=== PATIENT | female | born 1990 | race African-American/Black ===

== ENCOUNTER 2018-08-21 16:20 | Inpatient (IN) | payer MEDICAID, SELFPAY ==
[~2018-08-21 16:20] MED LIST: Ketorolac Tromethamine 30 MG/ML VIAL ONE; Ondansetron HCl/PF 4 MG/2 ML Vial ONE; PHENYLEPHRINE-NS 100 MCG/ML 10 ML SYRINGE ONE
[2018-08-21 17:01] VITALS: BMI 37.8
--- NOTE | 2018-08-21 18:12 | PDOC.FPROB ---
FMR OB H&P: HPI - History of Present Illness Chief Complaint: vaginal bleeding History of Present Illness: 28 yo at 39.6 wks by LMP c/w 21wk US. She was in normal state of health today when she began having vaginal bleeding when wiping after bathroom. Blood was dark and mucousy. Also had some dull pain in pubic and back that came-and- went, maybe every 10 minutes. Denies [place], scotoma, RUQ pain, abd pain, LOF, n/v, decreased movement. Primary Care Physician: Amy FMR OB H&P: Current - OB Labs Blood type: A RH: positive Antibody Screen: negative HIV: negative RPR: negative HepBsAg: negative Rubella: immune Urine drug screen: negative Gonorrhea: negative Chlamydia: negative 1 hour gtt: negative FMR OB H&P: History - Past Medical History PMH: mild anemia in blighted ovum in previous - OB History OB History: previous : blighted ovum FMR OB H&P: Medications - Current Home Medications: Medication Instructions Recorded Confirmed Type No Known 08/21/18 08/21/18 History Allergies/Adverse Reactions: Allergies Allergy/AdvReac Type Severity Reaction Status Date / Time No Known Allergies Allergy Verified 08/21/18 16:49 FMR OB H&P: ROS - Review of Systems General: denies: fever/chills, recent trauma Eyes: denies: vision changes, scotomas Cardiovascular: denies: chest pain Respiratory: denies: cough, shortness of breath Gastrointestinal: denies: abdominal pain, nausea, vomiting Genitourinary (Female): denies: incontinence, dysuria Musculoskeletal: denies: decrease range of motion Neurologic: denies: seizures, headache FMR OB H&P: Vital Signs - Maternal Vital signs: Vital Signs - First Documented Temp Pulse Resp BP 99.1 F 73 17 141/88 H 08/21/18 16:41 08/21/18 16:41 08/21/18 16:41 08/21/18 16:41 - Heart Tones Baseline: 150 Variability: moderate Deceleration: absent Category: category 1 [place] contractions every: 10 minutes FMR OB H&P: Physical Exam - Physical Exam General: NAD HEENT: MMM Neck: supple Heart: RRR, normal S1/S2 General: CTAB, no respiratory distress Abdomen: soft, non-tender, bowel sound present Musculoskeletal: pulses present Neurological: DTR +2 Deviation from normal: 1+ pitting edema to knees in both legs - Pelvic Exam Vulva: normal hair distribution SVE: FT/thick/-3 FMR OB H&P: A/P - Problem List (1) IUP (intrauterine ), incidental Current Visit: Yes Status: Acute Code(s): Z34.90 - ENCNTR FOR SUPRVSN OF NORMAL , UNSP, UNSP TRIMESTER (2) Elevated BP without diagnosis of hypertension Current Visit: Yes Status: Acute Code(s): R03.0 - ELEVATED BLOOD-PRESSURE READING, W/O DIAGNOSIS OF HTN (3) Vaginal bleeding during Current Visit: Yes Status: Resolved Code(s): O46.90 - ANTEPARTUM HEMORRHAGE , UNSPECIFIED, UNSPECIFIED TRIMESTER Discussion: Date/Time: 08/21/18 1806 28yo at 39.6wks by LMP/2nd trimester US here for bleeding. 1. SIUP with vaginal bleeding -During the course of evaluation of patient, baby's HR began having late decelerations which responded to intervention of fluid bolus and positioning on left side. Discussion with patient and family, the decision was made to perform c/section. 2. Elevated BP without a diagnosis of HTN -she did have another elevated value here in the 160s during evaluation, but normalized out. Will continue to monitor peripartum and . This H&P was discussed with Dr. Cage who agrees with the above documentation and plan. Attending Addendum - Attending Addendum Date/Time: 08/22/18 8896 I personally evaluated the patient and discussed the management with Dr. Blank I agree with the History, Examination, Assessment and Plan documented above with any addition or exceptions noted below. VB more than expected for bloody show. Patient had prolonged late decel during my exam. Her cervix is high thick and closed. Watch closely if recurs ---> deliver operatively.
[2018-08-21] MEDS ORDERED: Lactated Ringer's 1,000 ML IV SCH (18:30)
[2018-08-21] MEDS ORDERED: Promethazine HCl 25 MG/ML VIAL IM PRN ×2 (18:54→21:15)
[2018-08-21] MEDS ORDERED: Ondansetron HCl/PF 4 MG/2 ML Vial IVP PRN ×4 (18:54→21:15)
[2018-08-21] MEDS ORDERED: CEFAZOLIN/Water 2 GM/20 ML SYRINGE SLOW IVP SCH (19:00)
[2018-08-21] MEDS ORDERED: Bicitra 30 ML UDCUP PO SCH (19:00)
[2018-08-21 19:22] LABS: Hemoglobin 11.3 g/dL (12.0-16.0); Mean Corpuscular HGB CONC 32.4 g/dL (32.0-36.0); Mean Corpuscular Hemoglobin 27.8 pg (27.0-31.0); Mean Corpuscular Volume 85.8 fL (78.0-98.0); Mean Platelet Volume 9.7 fL (7.4-10.4); Platelet Count 190 thou/uL (130-400); Red Blood Cell (RBC) Count 4.05 mill/uL (4.20-5.40); White Blood Cell (WBC) Count 6.5 thou/uL (4.8-10.8)
[2018-08-21] MEDS ORDERED: Labetalol HCl 100 MG/20 ML VIAL SLOW IVP PRN (19:26)
[2018-08-21] MEDS ORDERED: Morphine PF 1 MG/ML SYR ONE (19:37)
[2018-08-21] MEDS ORDERED: ePHEDrine/0.9% NaCl/PF SYRINGE 50 mg/10 ml ONE (19:38)
[2018-08-21] MEDS ORDERED: Lidocaine 2% 10 ML INJ ONE (19:38)
[2018-08-21] MEDS ORDERED: PHENYLEPHRINE-NS 100 MCG/ML 10 ML SYRINGE ONE (19:38)
[2018-08-21] MEDS ORDERED: Ondansetron HCl/PF 4 MG/2 ML Vial ONE (19:38)
[2018-08-21] MEDS ORDERED: Bupivacaine 0.75% W/DEXTROSE 8.25% 2 ML AMP ONE (19:38)
[2018-08-21 19:53] LABS: Syphilis Antibody Nonreactive (Nonreactive); Syphilis Antibody Index 0.06 S/CO (<1.00 Non-Reactive)
[2018-08-21 19:54] LABS: HBSAg Index 0.23 S/CO (0-0.99); Hep B Surf Ag Non-Reactive S/CO (NonReactive)
[2018-08-21] MEDS ORDERED: Oxytocin 10 UNITS/ML VIAL ONE ×3 (20:13→20:53)
[2018-08-21] MEDS ORDERED: Ketorolac Tromethamine 30 MG/ML VIAL ONE (20:23)
[2018-08-21] MEDS ORDERED: HYDROmorphone 2 MG/ML VIAL SLOW IVP PRN (21:15)
[2018-08-21] MEDS ORDERED: L&D-Morphine 4 MG/ML VIAL SLOW IVP PRN (21:15)
[2018-08-21] MEDS ORDERED: Naloxone HCl 0.4 mg/ml Vial IV PRN (21:15)
[2018-08-21] MEDS ORDERED: Communication Order-Pharmacy FS SCH (21:15)
[2018-08-21] MEDS ORDERED: NS / Oxytocin 40 units/1000ml 1,000 ML IV SCH (21:15)
[2018-08-21] MEDS ORDERED: Acetaminophen/Codeine 30-300mg Tablet PO PRN (21:15)
[2018-08-21] MEDS ORDERED: Lanolin Ointment 7 GM TUBE TOP PRN (21:15)
[2018-08-21] MEDS ORDERED: Acetaminophen 325 MG TAB PO PRN (21:15)
[2018-08-21] MEDS ORDERED: Ketorolac Tromethamine 30 MG/ML VIAL IVP SCH (21:15)
[2018-08-21] MEDS ORDERED: Meperidine HCl/PF 25 MG/ML VIAL SLOW IVP PRN (21:15)
[2018-08-21] MEDS ORDERED: diphenhydrAMINE 50 MG/ML VIAL IVP PRN (21:15)
[2018-08-21] MEDS ORDERED: Eucerin (Mineral Oil/Petrolatum,White) 30 gm Jar TOP PRN (21:15)
[2018-08-21] MEDS ORDERED: Promethazine HCl 25 MG SUPP PR PRN (21:15)
[2018-08-21] MEDS ORDERED: Naloxone HCl 0.4 mg/ml Vial IVP PRN ×2 (21:15)
--- NOTE | 2018-08-21 21:44 | PDOC.LDPN ---
Labor & Delivery Progress Note - Subjective Subjective: comfortable - Objective Vital signs reviewed and normal: yes General: NAD, resting Uterine fundus: non tender Dilation: 5 Effacement: 75% Station: -2 FHT: category 2 (120/poor variability/+ accels/no decels) [place] contractions every: 2-3min AROM: clear fluid IUPC placed: yes - Assessment (1) Elevated BP without diagnosis of hypertension Code(s): R03.0 - ELEVATED BLOOD-PRESSURE READING, W/O DIAGNOSIS OF HTN Current Visit: Yes Status: Acute (2) IUP (intrauterine ), incidental Code(s): Z34.90 - ENCNTR FOR SUPRVSN OF NORMAL , UNSP, UNSP TRIMESTER Current Visit: Yes Status: Acute (3) Vaginal bleeding during Code(s): O46.90 - ANTEPARTUM HEMORRHAGE, UNSPECIFIED, UNSPECIFIED TRIMESTER Current Visit: Yes Status: Acute Plan: pitocin for augmentation
[2018-08-21] MEDS ORDERED: CEFAZOLIN 2 GM in Sodium Chloride 0.9% 100 ML IVPB SCH (22:00)
[2018-08-21] MEDS ORDERED: HYDROcodone/Acetaminophen 5/325 mg Tablet PO PRN (23:58)
[2018-08-22] MEDS: Ketorolac Tromethamine 30 MG/ML VIAL IVP PRN ×2 (02:19→08:55)
--- NOTE | 2018-08-22 05:13 | OP-2 ---
PROCEDURE PERFORMED: Primary low transverse section. Primary Surgeons: Robin Burnett Attending Surgeon: Dr. Yoav Cage, present for entirety of procedure PREOPERATIVE DIAGNOSES: 1. Term intrauterine . 2. Vaginal bleeding. 3. Nonreassuring heart tones with minimal variability. 4. Elevated blood pressures. POSTOPERATIVE DIAGNOSES: 1. Term intrauterine . 2. Vaginal bleeding. 3. Nonreassuring heart tones with minimal variability. 4. Elevated blood pressures. ANESTHESIA: Spinal. INDICATIONS: This is a 28-year-old, G2, P0-0-1-1 female at 39 and 6, who presented to the hospital with vaginal bleeding. heart tones were nonreassuring with frequent decelerations and minimal variability and so decision was made to go for section. Additionally, the patient was found to have elevated blood pressures in the 180s and 190s systolic. Risks and benefits of section were discussed with patient and she agreed for section. PROCEDURE IN DETAIL: The patient gave informed consent. Preoperative antibiotics included 2 grams cefazolin IV. The patient was taken to the operating room and spinal anesthesia was initiated. She was placed in supine position with a left tilt and prepped and draped in the usual sterile fashion. Pfannenstiel incision was made with a scalpel and carried down to the level of the fascia which was sharply nicked. The fascial cut was elevated with Lino clamps and underlying rectus muscles were bluntly dissected free. The fascia was from the recti using Taylor scissors in the midline. The recti were divided digitally. Peritoneum was entered using Taylor scissors with hemostats for retraction. Incision was extended bluntly. Recti were retracted manually. Bladder blade was placed. Bladder flap was created with Metzenbaum scissors. Bladder blade was replaced after creation of the bladder flap. Low transverse section was entered using scalpel. Hysterotomy was extended manually. Meconium-tinged fluid was noted. Infant was noted to be vertex and was delivered by fundal pressure. Mouth and nares were bulb suctioned. Cord clamped and cut, grossly normal crying male was handed to waiting nurses. Cord blood and cord segment were obtained. Placenta was extracted with fundal pressure found to be intact with 3-vessel cord and discarded and sent to pathology for evaluation, questionable area of infarct. Uterus was externalized and endometrium was curetted with dry lap. Bladder blade was replaced and uterus was closed with running locking 0 Monocryl suture. Following this, Floseal was used to achieve hemostasis on a bleeding piece of serosa. After this, hemostasis was noted throughout the hysterotomy. Pouch of Justin was examined and found to be free from bleeding. Gutters were found to be free from bleeding as well. Ovary and tubes were noted to be normal. Uterus was internalized and hysterotomy was again noted to be hemostatic. Fascia was closed using a running nonlocking 1-0 Vicryl suture. Subcutaneous was irrigated and small bleeders were bovied with adequate hemostasis noted. Subcutaneous tissue was closed with simple interrupted 3-0 plain gut suture. Skin was closed using laurence. Pressure dressing was placed. All counts were correct. The patient tolerated the procedure well and was taken to recovery room in stable condition. QBL: 701ml COMPLICATIONS: None. SPECIMENS: Cord blood, cord segment, placenta sent for further testing. FINDINGS: Grossly normal male infant. DRAINS: Valentine to gravity draining clear urine. MTDD
[2018-08-22 06:19] LABS: Hemoglobin 10.3 g/dL (12.0-16.0); Mean Corpuscular HGB CONC 32.6 g/dL (32.0-36.0); Mean Corpuscular Hemoglobin 28.4 pg (27.0-31.0); Mean Corpuscular Volume 87.2 fL (78.0-98.0); Mean Platelet Volume 9.9 fL (7.4-10.4); Platelet Count 171 thou/uL (130-400); RBC Distribution Width 13.1 % (11.5-14.5); Red Blood Cell (RBC) Count 3.64 mill/uL (4.20-5.40); White Blood Cell (WBC) Count 9.8 thou/uL (4.8-10.8)
[2018-08-22] MEDS ORDERED: Furosemide 20 MG/2 ML VIAL SLOW IVP SCH (06:30)
--- NOTE | 2018-08-22 06:32 | PDOC.PP ---
Post Progress Note Post Day #: 1 Subjective: 28 yo [id number] day s/p pLTCS 2/2 NRFHTs, vaginal bleeding. Pt still has johnson in place. Pain well controlled, scant lochia, denies headache, cp, SOB, VDC. Does report occasional nausea. She is tolerating oral liquids, will plan to ADAT. PO intake tolerated: yes Flatus: no Ambulation: no Vital Signs (12 hours) Temp Pulse Resp BP BP Pulse Ox 08/22/18 05:26 59 L 188/107 H 08/22/18 02:19 18 08/22/18 01:15 97.7 F 59 L 18 127/75 08/22/18 00:00 97.7 F 61 20 121/75 98 08/21/18 22:02 97.6 F 60 16 122/57 L Weight Weight 99.79 kg - Physical Examination General: NAD Cardiovascular: no m/r/g, RRR Respiratory: clear to auscultation bilaterally, non-labored breathing Abdominal: + bowel sounds, lochia, no distention, appropriately TTP Deviation from normal: 1+ pitting edema b/l LE Neurological: no gross focal deficits Psychiatric: normal affect Result Diagrams: 08/22/18 05:47 Additional Labs: Post Labs Blood Type A POSITIVE 08/21/18 19:07 Hep Bs Antigen Non-Reactive S/CO (NonReactive) 08/21/18 19:07 (1) induced hypertension, Code(s): O13.5 - GESTATNL HTN WITHOUT SIGNIFICANT PROTEIN, COMP THE PUERP Status: Acute (2) Status post primary low transverse section Code(s): Z98.891 - HISTORY OF UTERINE SCAR FROM PREVIOUS SURGERY Status: Acute (3) IUP (intrauterine ), incidental Code(s): Z34.90 - ENCNTR FOR SUPRVSN OF NORMAL , UNSP, UNSP TRIMESTER Status: Acute (4) Vaginal bleeding during Code(s): O46.90 - ANTEPARTUM HEMORRHAGE, UNSPECIFIED, UNSPECIFIED TRIMESTER Status: Resolved - Assessment/Plan 1) PIH: - elevated pressures this AM up to 180s systolic, pt currently asymptomatic - labetalol given this am, will give one time dose IVP lasix and recheck BP in 1 hour - will an oral labetalol 100mg po BID - add CMP to labs and urine pr/cr ratio to r/o preeclampsia - monitor for new onset headache, changes in vision and low threshold for mag administration 2) s/p pLTCS 2/2 NRFHTs and vaginal bleeding - placenta sent for pathology - pain well controlled on tylenol and prn toradol - will hold NSAIDs 2/2 PIH vs preeclampsia - PRN norco and tylenol for pain 3) IUP, delivered - pt delivered via pLTCS 2/2 NRFHTs - baby in NICU, decreasing O2 requirement and improving rr, sahilley TTN - consultation placed - encouraged to pump as mother desires breast feeding and baby unable to take oral feeds at this time 4) Vaginal bleeding during , resolved: - placenta sent for path, pending results Dispo: PP day s/p pLTCS complicated by elevated BPs w/o dx of preeclampsia, will start an labetalol oral and give one time dose of IV lasix, cont to trend vitals, ADAT, encourage ambulation today and johnson removal this AM. <Nate Reyes - Last Filed: 08/22/18 06:30> Vital Signs (12 hours) Temp Pulse Resp BP BP Pulse Ox 08/22/18 08:53 71 136/74 08/22/18 06:20 188/93 H 08/22/18 05:26 59 L 188/107 H 08/22/18 05:20 98.0 F 59 L 20 180/107 H 08/22/18 02:19 18 08/22/18 01:15 97.7 F 59 L 18 127/75 08/22/18 00:00 97.7 F 61 20 121/75 98 Weight Weight 99.79 kg Result Diagrams: 08/22/18 05:47 08/22/18 05:47 Additional Labs: Post Labs Blood Type A POSITIVE 08/21/18 19:07 Hep Bs Antigen Non-Reactive S/CO (NonReactive) 08/21/18 19:07 <Percy Christopher - Last Filed: 08/22/18 10:29> Attending Addendum - Attending Addendum Date/Time: 08/22/18 1029 I personally evaluated the patient and discussed the management with Dr. Reyes. I agree with the History, Examination, Assessment and Plan documented above with any addition or exceptions noted below. <Percy Christopher - Last Filed: 08/22/18 10:29>
[2018-08-22 08:29] LABS: ALT (SGPT) 13 U/L (8-55); AST (SGOT) 24 U/L (5-34); Alkaline Phosphatase 127 U/L (40-150); Anion Gap 14 mmol/L (10-20); BUN (Urea Nitrogen) 9 mg/dL (7.0-18.7); Bilirubin, Total 0.7 mg/dL (0.2-1.2); Calc. Creatinine Clearance 168 mL/min (70-130); Calcium 8.5 mg/dL (7.8-10.44); Carbon Dioxide 20 mmol/L (22-29); Chloride 106 mmol/L (98-107); Estimated GFR-MDRD Greater than 90; Globulin 2.7 g/dL (2.4-3.5); Glucose 75 mg/dL (70-105); Potassium 4.2 mmol/L (3.5-5.1); Protein, Total 5.7 g/dL (6.0-8.3); Sodium 136 mmol/L (136-145)
[2018-08-22] MEDS: Prenatal Vitamin 1 TAB PO SCH (08:54)
[2018-08-22] MEDS: Docusate Calcium (SURFAK) 240 MG CAP PO SCH ×2 (08:54→21:58)
[2018-08-22] MEDS ORDERED: Adacel (T-DAP) 0.5 ML VIAL IM ONE (09:00)
[2018-08-22] MEDS ORDERED: Labetalol 100 MG TAB PO SCH (09:00)
[2018-08-22 09:08] LABS: Creatinine, Urine Less than 20.00 mg/dL (47-110); Protein, Urine Random Quant Less than 10 mg/dL (1-14)
[2018-08-22] MEDS: Ferrous Sulfate 325 MG TAB PO SCH ×2 (09:34→17:08)
[2018-08-22] MEDS: Ibuprofen 800 MG TAB PO SCH (21:59)
[2018-08-23] MEDS: Ibuprofen 800 MG TAB PO SCH ×4 (00:17→21:55)
--- NOTE | 2018-08-23 07:18 | PDOC.PP ---
Addendum entered and electronically signed by Nate Reyes DO 08/23/18 11: 32: PP day 2, tolerating PO, ambulating, passing flatus. Minor incisional pain, otherwise doing well. BPs have nromalized, denies headahce, cp, sob, nvdc. Original Note: Post Progress Note Post Day #: 2 PO intake tolerated: yes Flatus: yes Ambulation: yes Vital Signs (12 hours) Temp Pulse Resp BP Pulse Ox 08/23/18 00:10 98.0 F 70 18 130/73 08/22/18 20:00 97.6 F 70 20 143/81 H 98 Weight Weight 99.79 kg - Physical Examination General: NAD Cardiovascular: no m/r/g, RRR Respiratory: clear to auscultation bilaterally, non-labored breathing Abdominal: + bowel sounds, lochia, no distention, appropriately TTP Extremities: negative homans (B) Skin: CS incision dry & intact, no rash Neurological: no gross focal deficits Psychiatric: normal affect Result Diagrams: 08/22/18 05:47 08/22/18 05:47 Additional Labs: Post Labs Blood Type A POSITIVE 08/21/18 19:07 Hep Bs Antigen Non-Reactive S/CO (NonReactive) 08/21/18 19:07 (1) induced hypertension, Code(s): O13.5 - GESTATNL HTN WITHOUT SIGNIFICANT PROTEIN, COMP THE PUERP Status: Acute (2) Status post primary low transverse section Code(s): Z98.891 - HISTORY OF UTERINE SCAR FROM PREVIOUS SURGERY Status: Acute - Assessment/Plan 1) PIH - no severe features and BPs have improved throughout the day yesterday - will cont to monitor - labetalol prn for extreme pressures - sahilley stable for DC to home tomorrow 2) pLTCS: - PP day 2 - doing well has some incisional and post op pain that is controlled with ibuprofen and tylenol - incision CDI - prn ibuprofen/tylenol for post op pain - monitor Is/Os Dispo: Cont to monitor pressures throughout the day, likely ok for DC to home tomorrow. <Nate Reyes - Last Filed: 08/23/18 07:30> Vital Signs (12 hours) Pulse Ox 08/24/18 08:00 99 Weight Weight 99.79 kg Result Diagrams: 08/22/18 05:47 08/22/18 05:47 Additional Labs: Post Labs Blood Type A POSITIVE 08/21/18 19:07 Hep Bs Antigen Non-Reactive S/CO (NonReactive) 08/21/18 19:07 <Percy Christopher - Last Filed: 08/24/18 15:02> Attending Addendum - Attending Addendum Date/Time: 08/24/18 3054 I personally evaluated the patient and discussed the management with Dr. Reyes and Dr Wells. I agree with the History, Examination, Assessment and Plan documented above with any addition or exceptions noted below. <Percy Christopher - Last Filed: 08/24/18 15:02>
[2018-08-23] MEDS: Docusate Calcium (SURFAK) 240 MG CAP PO SCH ×2 (07:59→21:55)
[2018-08-23] MEDS: Prenatal Vitamin 1 TAB PO SCH (07:59)
[2018-08-23 21:05] VITALS: BP 136/74; TEMP 98.6
== END 2018-08-24 13:15 | disposition home or self-care (01) | DRG 788 ==
LOC: L&D/OP 16:20 → L&D 19:02 → 3SW 08-22 00:23
PROVIDERS: ATTEND Family Medicine
PROC: 10D00Z1 Extraction of Products of Conception, Low, Open Approach (ICD-10-PCS; principal; 2018-08-21)
DX: O67.8 Other intrapartum hemorrhage (principal); Z3A.39 39 weeks gestation of pregnancy; Z37.0 Single live birth; O76 Abnormality in fetal heart rate and rhythm complicating labor and delivery; O13.5 Gestational [pregnancy-induced] hypertension without significant proteinuria, complicating the puerperium
CPT/HCPCS: 36415; 51702; 80053; 82570; 84156; 85027; 86780; 86850; 86900; 86901; 87340; 88307; 99285; J1200; J1885; J1940; J2274; J2310; J2405; J2590; J3490